=== PATIENT | male | born 1935 | race Caucasian/White ===

== ENCOUNTER → 2018-04-26 | Outpatient (CLI) | payer OTHER ==
[~2018-04-26] MED LIST: ADULT LOW DOSE81 MG PO; AFLURIA 2045 MCG/0.4; ALDACTONE25 MG PO; AMOXICILLIN250 M1 PO; BENADRYL25 MG PO; BETIMOL10 ML OP; CALCIUM 500+D1 EAC3 PO; CALCIUM OYSTER500 MG PO; CARVEDILOL12.5 MG PO; CARVEDILOL6.25 MG PO; CO Q-10100 MG PO; COQ-10100 MG PO; COUMADIN 1MG TAB1 M1; COUMADIN 1MG TAB1 M1 PO; COZAAR 25 MG TA25 M1 PO; DILAUDID 4 MG TA4 M1 PO; ELIQUIS5 MG PO; ENTRESTO 24 MG1 EACH PO; FENTANYL PA12 MCG/HR TP; FENTANYL PA25 MCG/HR TP; FISH OIL 1,0001 EAC7 PO; FISH OIL 1,001000 MG PO; FISH OIL SOFTG1 EACH OR; FOSAMAX 70 MG T70 M1 PO; GAMUNEX IV; HYDROCODON-ACE1 EAC7 PO; ISOSORBIDE DINI30 MG PO; KEFLEX250 MG PO; LASIX 20 MG TAB20 MG PO; LOPRESSOR 50 MG50 M1 PO; LOPRESSOR50 PO; LORTAB 7.5/5001 TA1; LUMIGAN2.5 M1 OPHTHALMIC; MELOXICAM7.5 MG PO; MIRALAX255 GM; MIRALAX255 GM PO; MULTIVITAMINS PO; OMEGA 3-6-9 CO1 EACH PO; OMEPRAZOLE PO; OXYCODONE-ACET1 EAC2 PO; OXYCONTIN10 M1 PO; PACERONE 200 M200 M1 PO; PNEUMOVAX25 MCG/0.5; POTASSIUM20 PO; PRAVACHOL40 MG PO; PRAVASTATIN SOD40 MG PO; PREDNISONE 20 M20 M1 PO; PREDNISONE 5 MG5 M1 PO; PREDNISONE PO; PRILOSEC 20 MG20 MG PO; PRILOSEC40 MG PO; PRIVIGEN IV; SENOKOT-S1 TA1 PO; SIMVASTATIN40 MG PO; SKELAXIN 800 M800 M1 PO; TIMOLOL MALEATE5 M2 OPHTHALMIC; TOPROL XL50 MG PO; TUMS PO; VALIUM5 MG PO; VITAMIN D 5050000 I1 PO; VITAMIN D1000 UNI1 PO; XALATAN2.5 ML OPHTHALMIC; ZOFRAN4 MG PO; ZOLOFT25 MG PO
[2018-04-26 11:03] LABS: HEMATOCRIT 42.5 % (42.0-52.0); HEMOGLOBIN 14.4 gm/dL (14.0-18.0); MCH 30.8 pg (26.0-34.0); MCV 90.9 fL (80.0-100.0); RBC 4.68 mil/uL (4.50-6.00); RDW 13.9 % (10.5-14.5); WBC 4.8 thou/uL (4.0-11.0)
[2018-04-26 11:14] LABS: ALBUMIN 3.2 g/dL (3.4-5.0); CREATININE 1.3 mg/dL (0.7-1.3); POTASSIUM 3.6 mmol/L (3.5-5.1); TOTAL BILIRUBIN 0.8 mg/dL (<0.1-1.0); TOTAL PROTEIN 6.8 g/dL (6.4-8.2)
[2018-04-26 11:24] VITALS: BP 105/63
[2018-04-26 11:44] LABS: ABSOLUTE NEUTROPHILS 2.8 thou/uL (1.4-8.2); PLATELET COUNT 139 thou/uL (150-400); PLATELET ESTIMATE NORMAL
== END ==
LOC: OPONC 01:30
PROVIDERS: Psychiatry & Neurology Neurology
DX: G61.81 Chronic inflammatory demyelinating polyneuritis (principal); R26.9 Unspecified abnormalities of gait and mobility; R53.1 Weakness; Z79.899 Other long term (current) drug therapy
CPT/HCPCS: 95000; 95001

== ENCOUNTER → 2018-04-27 | Outpatient (CLI) | payer OTHER ==
[2018-04-27 10:05] VITALS: BP 105/62
== END ==
LOC: OPONC
DX: G61.81 Chronic inflammatory demyelinating polyneuritis (principal); R26.9 Unspecified abnormalities of gait and mobility; R53.1 Weakness; Z79.899 Other long term (current) drug therapy
CPT/HCPCS: 95000; 95001

== ENCOUNTER → 2018-04-28 | Outpatient (CLI) | payer OTHER ==
[2018-04-28 11:35] VITALS: BP 128/73
== END ==
LOC: OPONC 00:50
DX: G61.81 Chronic inflammatory demyelinating polyneuritis (principal); R26.9 Unspecified abnormalities of gait and mobility; R53.1 Weakness; Z79.899 Other long term (current) drug therapy
CPT/HCPCS: 95000; 95001

== ENCOUNTER → 2018-04-29 | Outpatient (CLI) | payer OTHER ==
[2018-04-29 10:15] VITALS: BP 100/60
== END ==
LOC: OPONC 02:53
DX: G61.81 Chronic inflammatory demyelinating polyneuritis (principal); R26.9 Unspecified abnormalities of gait and mobility; R53.1 Weakness; Z79.899 Other long term (current) drug therapy
CPT/HCPCS: 95000; 95001

== ENCOUNTER → 2018-05-17 | Outpatient (CLI) | payer OTHER ==
[2018-05-17 15:27] LABS: HEMATOCRIT 34.2 % (42.0-52.0); HEMOGLOBIN 11.8 gm/dL (14.0-18.0); MCH 31.7 pg (26.0-34.0); MCHC 34.5 g/dL (28.0-37.0); MCV 91.8 fL (80.0-100.0); PLATELET COUNT 157 thou/uL (150-400); RBC 3.73 mil/uL (4.50-6.00); RDW 15.2 % (10.5-14.5); WBC 3.6 thou/uL (4.0-11.0)
[2018-05-17 15:38] LABS: ALBUMIN 2.9 g/dL (3.4-5.0); CALCIUM 8.8 mg/dL (8.5-10.1); CREATININE 1.3 mg/dL (0.7-1.3); POTASSIUM 3.9 mmol/L (3.5-5.1); TOTAL BILIRUBIN 0.7 mg/dL (<0.1-1.0)
[2018-05-17 15:47] LABS: ABSOLUTE NEUTROPHILS 1.8 thou/uL (1.4-8.2); ANISOCYTOSIS 1+
[2018-05-17 15:48] LABS: POLYCHROMASIA OCCASIONAL
== END ==
LOC: OPONC 00:36
PROVIDERS: Psychiatry & Neurology Neurology
DX: G61.81 Chronic inflammatory demyelinating polyneuritis (principal); R26.9 Unspecified abnormalities of gait and mobility; R53.1 Weakness; Z79.899 Other long term (current) drug therapy
CPT/HCPCS: 95000; 95001

== ENCOUNTER → 2018-06-07 | Outpatient (CLI) | payer OTHER ==
[2018-06-07 13:55] VITALS: BP 124/74
[2018-06-07 16:17] LABS: PLATELET COUNT 130 thou/uL (150-400)
[2018-06-07 16:19] LABS: HEMATOCRIT 33.3 % (42.0-52.0); HEMOGLOBIN 11.5 gm/dL (14.0-18.0); MCH 32.4 pg (26.0-34.0); MCHC 34.7 g/dL (28.0-37.0); MCV 93.6 fL (80.0-100.0); RBC 3.55 mil/uL (4.50-6.00); RDW 15.1 % (10.5-14.5)
[2018-06-07 16:20] LABS: WBC 1.7 thou/uL (4.0-11.0)
[2018-06-07 16:35] LABS: ALBUMIN 2.6 g/dL (3.4-5.0); CALCIUM 8.3 mg/dL (8.5-10.1); CREATININE 1.2 mg/dL (0.7-1.3); POTASSIUM 3.2 mmol/L (3.5-5.1); TOTAL BILIRUBIN 0.6 mg/dL (<0.1-1.0); TOTAL PROTEIN 8.1 g/dL (6.4-8.2)
[2018-06-07 16:47] LABS: ABSOLUTE NEUTROPHILS 1.1 thou/uL (1.4-8.2)
[2018-06-07 16:48] LABS: ANISOCYTOSIS 1+; HYPOCHROMASIA SLIGHT
== END ==
LOC: OPONC 07:59
DX: G61.81 Chronic inflammatory demyelinating polyneuritis (principal); R26.9 Unspecified abnormalities of gait and mobility; R53.1 Weakness; Z79.899 Other long term (current) drug therapy
CPT/HCPCS: 95000; 95001

== ENCOUNTER → 2018-07-26 | Outpatient (CLI) | payer OTHER ==
[2018-07-26 11:15] LABS: HEMATOCRIT 40.1 % (42.0-52.0); HEMOGLOBIN 13.8 gm/dL (14.0-18.0); MCH 31.6 pg (26.0-34.0); MCHC 34.3 g/dL (28.0-37.0); MCV 92.3 fL (80.0-100.0); PLATELET COUNT 145 thou/uL (150-400); RBC 4.35 mil/uL (4.50-6.00); RDW 13.3 % (10.5-14.5); WBC 3.6 thou/uL (4.0-11.0)
[2018-07-26 11:30] LABS: ALBUMIN 3.2 g/dL (3.4-5.0); CALCIUM 8.6 mg/dL (8.5-10.1); CREATININE 1.2 mg/dL (0.7-1.3); POTASSIUM 3.5 mmol/L (3.5-5.1); TOTAL BILIRUBIN 0.7 mg/dL (<0.1-1.0); TOTAL PROTEIN 6.7 g/dL (6.4-8.2)
[2018-07-26 12:09] LABS: ABSOLUTE NEUTROPHILS 2.1 thou/uL (1.4-8.2); ATYPICAL LYMPHS 6 %; PLATELET ESTIMATE NORMAL
[2018-07-26 14:54] VITALS: BP 96/64
--- NOTE | 2018-07-26 14:58 | NUR ---
IN FOR Q4WEEK GAMUNEX INFUSION. STATED FEELING WELL. TITRATED GAMUNEX PER PROTOCOL WITH MAX RATE OF 140ML/HR AND TOLERATED WELL WITHOUT INCIDENT. SCHEDULED TO RETURN FOR NEXT INFUSION. DISMISSED IN STABLE CONDITION.
== END ==
LOC: OPONC 00:15
DX: G61.81 Chronic inflammatory demyelinating polyneuritis (principal); D72.9 Disorder of white blood cells, unspecified; Z79.899 Other long term (current) drug therapy
CPT/HCPCS: 95000; 95001

== ENCOUNTER → 2018-08-23 | Outpatient (CLI) | payer OTHER ==
[~2018-08-23] MED LIST changes: +ACETAMINOPHEN-1 EAC1 PO; +COUGH DM PO; +KLOR-CON 1010 MEQ PO; +SENNA8.6 MG PO; +TIMOPTIC 0.5%1 EACH OPHTHALMIC; +TOPROL XL25 MG PO
[2018-08-23 10:20] VITALS: BP 103/62
[2018-08-23 12:37] LABS: HEMATOCRIT 39.4 % (42.0-52.0); HEMOGLOBIN 13.3 gm/dL (14.0-18.0); MCH 31.1 pg (26.0-34.0); MCHC 33.8 g/dL (28.0-37.0); MCV 92.1 fL (80.0-100.0); RBC 4.28 mil/uL (4.50-6.00); RDW 13.6 % (10.5-14.5); WBC 4.3 thou/uL (4.0-11.0)
[2018-08-23 12:56] LABS: ALBUMIN 3.1 g/dL (3.4-5.0); CALCIUM 9.2 mg/dL (8.5-10.1); CREATININE 1.1 mg/dL (0.7-1.3); POTASSIUM 4.7 mmol/L (3.5-5.1); TOTAL BILIRUBIN 0.7 mg/dL (<0.1-1.0); TOTAL PROTEIN 6.8 g/dL (6.4-8.2)
[2018-08-23 13:13] LABS: ABSOLUTE NEUTROPHILS 2.7 thou/uL (1.4-8.2); LARGE PLATELETS RARE; PLATELET COUNT 140 thou/uL (150-400)
== END ==
LOC: OPONC 00:38
DX: G61.81 Chronic inflammatory demyelinating polyneuritis (principal); D72.9 Disorder of white blood cells, unspecified; Z79.899 Other long term (current) drug therapy
CPT/HCPCS: 95000; 95001

== ENCOUNTER 2018-08-26 08:05 | Emergency (ER) | payer OTHER ==
[~2018-08-26] VITALS: Ht 182.9 cm; Wt 78.0 kg
[~2018-08-26 08:05] MED LIST changes: -ACETAMINOPHEN-1 EAC1 PO; -COUGH DM PO; -KLOR-CON 1010 MEQ PO; -SENNA8.6 MG PO; -TIMOPTIC 0.5%1 EACH OPHTHALMIC; -TOPROL XL25 MG PO
--- NOTE | 2018-08-26 08:42 | EKG ---
[place] [address] [facility] [place] [address] ELECTROCARDIOGRAM REPORT Name: RODGER GRAY Room #: [facility]#: [id number] ������������������ Admission: ������������������ Attend Phys: Discharge: ������������������ Date of : 35 Report #: [id number] ����������������������������������������������������������������� [id number] THIS REPORT FOR: //name// [facility] ED Test Date: 2018-08-26 Test Time: 08:32:02 Pat Name: RODGER GRAY Department: Room: Gender: M [employer]: : 1935 Requested By: Charlene Harper Order Number: [id number] MD: Aftab Banuelos Measurements Intervals Amigo Rate: 63 P: 0 MO: 31 QRS: 204 QRSD: 119 T: 75 QT: 426 QTc: 437 Interpretive Statements Ventricular-paced rhythm No further analysis attempted due to paced rhythm Compared to ECG 06/14/2015 08:16:26 no significant change was found Electronically Signed On 08-26-2018 8:42:43 [employer] by Aftab Banuelos [email or web address] ��������������������������������������������� <ELECTRONICALLY SIGNED> ���������������������������������������� By: Aftab Banuelos MD, [facility] ��������������������������������������������� 08/26/18 0842 1 Aftab Banuelos MD, FACC /EPI
[2018-08-26 08:43] LABS: HEMATOCRIT 42.6 % (42.0-52.0); HEMOGLOBIN 14.6 gm/dL (14.0-18.0); MCH 31.1 pg (26.0-34.0); MCHC 34.3 g/dL (28.0-37.0); MCV 90.9 fL (80.0-100.0); PLATELET COUNT 135 thou/uL (150-400); RBC 4.69 mil/uL (4.50-6.00); RDW 13.3 % (10.5-14.5); WBC 4.7 thou/uL (4.0-11.0)
[2018-08-26 08:51] LABS: CALCIUM 9.4 mg/dL (8.5-10.1); CREATININE 1.2 mg/dL (0.7-1.3); POTASSIUM 3.8 mmol/L (3.5-5.1)
[2018-08-26] MEDS ORDERED: KLOR-CON 1010 MEQ PO (08:53)
[2018-08-26] MEDS ORDERED: TOPROL XL25 MG PO (08:53)
[2018-08-26 09:02] LABS: ABSOLUTE NEUTROPHILS 2.9 thou/uL (1.4-8.2); ATYPICAL LYMPHS 2 %; LARGE PLATELETS OCCASIONAL
[2018-08-26 09:03] LABS: ANISOCYTOSIS SLIGHT
[2018-08-26] MEDS ORDERED: TIMOPTIC 0.5%1 EACH OPHTHALMIC (09:05)
[2018-08-26] MEDS ORDERED: SENNA8.6 MG PO (10:17)
[2018-08-26] MEDS ORDERED: COUGH DM PO (10:17)
[2018-08-26] MEDS ORDERED: ACETAMINOPHEN-1 EAC1 PO (10:17)
[2018-08-26 10:28] VITALS: BP 109/59
== END 2018-08-26 10:29 | disposition home or self-care (01) ==
LOC: ER 08:05
PROVIDERS: Student in an Organized Health Care Education/Training Program
DX: J10.1 Influenza due to other identified influenza virus with other respiratory manifestations (principal); K21.9 Gastro-esophageal reflux disease without esophagitis; I10 Essential (primary) hypertension; E78.00 Pure hypercholesterolemia, unspecified; Z95.0 Presence of cardiac pacemaker; Z90.49 Acquired absence of other specified parts of digestive tract; Z88.8 Allergy status to other drugs, medicaments and biological substances

== ENCOUNTER → 2018-09-22 | Outpatient (CLI) | payer OTHER ==
[~2018-09-22] MED LIST changes: +ACETAMINOPHEN-1 EAC1 PO; +COUGH DM PO; +KLOR-CON 1010 MEQ PO; +SENNA8.6 MG PO; +TIMOPTIC 0.5%1 EACH OPHTHALMIC; +TOPROL XL25 MG PO
[2018-09-22 10:44] VITALS: BP 109/67
[2018-09-22 11:39] LABS: HEMATOCRIT 36.1 % (42.0-52.0); HEMOGLOBIN 12.4 gm/dL (14.0-18.0); MCH 30.6 pg (26.0-34.0); MCHC 34.2 g/dL (28.0-37.0); MCV 89.5 fL (80.0-100.0); RBC 4.03 mil/uL (4.50-6.00); RDW 14.2 % (10.5-14.5); WBC 3.5 thou/uL (4.0-11.0)
[2018-09-22 11:54] LABS: ALBUMIN 2.9 g/dL (3.4-5.0); CALCIUM 8.1 mg/dL (8.5-10.1); CREATININE 1.1 mg/dL (0.7-1.3); POTASSIUM 3.2 mmol/L (3.5-5.1); TOTAL BILIRUBIN 0.8 mg/dL (<0.1-1.0)
[2018-09-22 12:21] LABS: ABSOLUTE NEUTROPHILS 2.2 thou/uL (1.4-8.2); ANISOCYTOSIS SLIGHT; PLATELET COUNT 129 thou/uL (150-400)
--- NOTE | 2018-09-22 14:15 | NUR ---
IN FOR MONTHLY GAMUNEX C INFUSION. REPORTS DOING WELL NEUROLOGICALLY BUT IS HAVING RESIDUAL WEAKNESS AND FATIGUE AND LINGERING DRY COUGH S/P INFLUENZA THIS PAST MONTH. DENIES DYSPNEA AND REPORTS GAINING STRENGTH AND WT BACK THAT WAS LOST WITH ILLNESS. PT TOOK HIS OWN TYLENOL AND BENADRYL PRIOR TO ARRIVAL. GAMUNEX C TITRATED TO MAX RATE OF 140/H AND COMPLETED IN JUST UNDER 3 HOURS. NO S/S REACTION. LABS DRAWN PRIOR REVEAL K OF 3.2. PT STATES HE IS STILL ON HIS NORMAL DOSE OF POTASSIUM BUT HAD BEEN ILL RECENTLY WHICH MAY HAVE AFFECTED HIS LEVEL. FAXED THESE LABS TO BOTH DR. PERDOMO AND DR. RHODES. WILL CALL DR. ARMENDARIZ WHEN THEY GET HOME TO SEE IF DOSE ADJUSTMENT IS INDICATED. PT DISMISSED IN STABLE CONDITION. SCHEDULED TO RETURN IN 4 WEEKS.
== END ==
LOC: OPONC 09-20 07:13
PROVIDERS: Psychiatry & Neurology Neurology
DX: G61.81 Chronic inflammatory demyelinating polyneuritis (principal)
CPT/HCPCS: 95000; 95001

== ENCOUNTER → 2018-10-18 | Outpatient (CLI) | payer OTHER ==
[2018-10-18 11:08] LABS: HEMATOCRIT 38.6 % (42.0-52.0); HEMOGLOBIN 13.1 gm/dL (14.0-18.0); MCH 30.9 pg (26.0-34.0); MCHC 33.9 g/dL (28.0-37.0); MCV 91.1 fL (80.0-100.0); RBC 4.24 mil/uL (4.50-6.00); RDW 15.1 % (10.5-14.5); WBC 4.1 thou/uL (4.0-11.0)
[2018-10-18 11:19] LABS: ALBUMIN 3.4 g/dL (3.4-5.0); CALCIUM 9.1 mg/dL (8.5-10.1); CREATININE 1.2 mg/dL (0.7-1.3); POTASSIUM 3.6 mmol/L (3.5-5.1); TOTAL BILIRUBIN 1.1 mg/dL (<0.1-1.0); TOTAL PROTEIN 6.9 g/dL (6.4-8.2)
[2018-10-18 11:41] LABS: ABSOLUTE NEUTROPHILS 2.6 thou/uL (1.4-8.2); ATYPICAL LYMPHS 6 %
[2018-10-18 11:42] LABS: LARGE PLATELETS FEW; PLATELET COUNT 156 thou/uL (150-400); PLATELET ESTIMATE NORMAL
[2018-10-18 11:43] LABS: ANISOCYTOSIS SLIGHT; POIKILOCYTOSIS SLIGHT
[2018-10-18 13:53] VITALS: BP 106/60
--- NOTE | 2018-10-18 15:13 | NUR ---
IN FOR MONTHLY GAMUNEX C INFUSION. PATIENT STATED NUMBESS IS GONE FROM HIS FACE, HOWEVER STILL HAS MILD NUMBNESS FROM KNEES DOWN TO FEET. IV STARTED. PATIENT TOOK OWN PREMEDS BEFORE COMING IN. TITRATED GAMUNEX C PER PROTOCOL WWITH MAX RATE OF 120ML/HR AND TOLERATED WELL WITHOUT INCIDENT. PATIENT TO SEE DR. RHODES TOMORROW. PLATELET COUNT WNL. FAXED LAB RESULTS TO DR. RHODES. REMOVED IV AND DISMISSED IN STABLE CONDITION.
== END ==
LOC: OPONC 00:30
PROVIDERS: Psychiatry & Neurology Neurology
DX: G61.81 Chronic inflammatory demyelinating polyneuritis (principal); D72.9 Disorder of white blood cells, unspecified; Z79.899 Other long term (current) drug therapy
CPT/HCPCS: 95000; 95001

== ENCOUNTER → 2018-11-19 | Outpatient (CLI) | payer OTHER ==
[2018-11-19 12:56] LABS: ABSOLUTE NEUTROPHILS 2.3 thou/uL (1.4-8.2); BASOPHILS 0.8 % (0.0-2.0); EOSINOPHILS 1.7 % (0.0-3.0); HEMATOCRIT 38.8 % (42.0-52.0); HEMOGLOBIN 13.3 gm/dL (14.0-18.0); LYMPHOCYTES 30.6 % (24.0-44.0); MCH 31.3 pg (26.0-34.0); MCHC 34.3 g/dL (28.0-37.0); MCV 91.2 fL (80.0-100.0); MONOCYTES 11.7 % (1.0-8.0); PLATELET COUNT 160 thou/uL (150-400); POLYS 55.2 % (36.0-66.0); RBC 4.25 mil/uL (4.50-6.00); RDW 14.2 % (10.5-14.5); WBC 4.2 thou/uL (4.0-11.0)
[2018-11-19 13:15] LABS: ALBUMIN 3.3 g/dL (3.4-5.0); CALCIUM 8.7 mg/dL (8.5-10.1); CREATININE 1.2 mg/dL (0.7-1.3); POTASSIUM 3.6 mmol/L (3.5-5.1); TOTAL BILIRUBIN 0.9 mg/dL (<0.1-1.0)
[2018-11-19 16:25] VITALS: BP 107/71
--- NOTE | 2018-11-19 16:29 | NUR ---
IN FOR MONTHLY GAMUNEX C INFUSION. STATED INFUSIONS HELPING POLYNEUROPATHY FOR ABOUT 2 WEEKS AFTER INFUSION AND THEN THE NEUROPATHY STARTS UP AGAIN. COMPLAINING OF LEFT KNEE WEAKNESS, ARM AND FACIAL NUMBNESS TODAY. TITRATED INFUSION PER PROTOCOL WITH MAX RATE OF 125ML/HR AND TOLERATED WELL WITH NO ADVERSE REACTION NOTED. SCHEDULED NEXT APPT IN NOVEMBER. AT BEDSIDE. DISMISSED IN STABLE CONDITION.
== END ==
LOC: OPONC 11-15 13:03
PROVIDERS: Psychiatry & Neurology Neurology
DX: G61.81 Chronic inflammatory demyelinating polyneuritis (principal); D72.9 Disorder of white blood cells, unspecified; Z79.899 Other long term (current) drug therapy
CPT/HCPCS: 95000; 95001

== ENCOUNTER → 2018-12-20 | Outpatient (CLI) | payer OTHER ==
[2018-12-20 10:55] VITALS: BP 106/65
[2018-12-20 12:01] LABS: HEMATOCRIT 41.7 % (42.0-52.0); HEMOGLOBIN 14.1 gm/dL (14.0-18.0); MCH 30.7 pg (26.0-34.0); MCHC 33.7 g/dL (28.0-37.0); MCV 91.2 fL (80.0-100.0); RBC 4.57 mil/uL (4.50-6.00); RDW 13.7 % (10.5-14.5); WBC 4.4 thou/uL (4.0-11.0)
[2018-12-20 12:14] LABS: ALBUMIN 3.3 g/dL (3.4-5.0); CALCIUM 8.8 mg/dL (8.5-10.1); CREATININE 1.3 mg/dL (0.7-1.3); POTASSIUM 3.5 mmol/L (3.5-5.1); TOTAL BILIRUBIN 0.6 mg/dL (<0.1-1.0)
[2018-12-20 12:23] LABS: ABSOLUTE NEUTROPHILS 2.8 thou/uL (1.4-8.2); METAMYELOCYTES 1 %; PLATELET COUNT 148 thou/uL (150-400); PLATELET ESTIMATE NORMAL
[2018-12-20 12:24] LABS: LARGE PLATELETS FEW
--- NOTE | 2018-12-20 15:14 | NUR ---
IN FOR GAMUNEX C INFUSION FOR CIDP. PATIENT HAVING INCREASED WEAKNESS IN LEGS AND STATED HE ALMOST FELL THIS MORNING. PATIENT DID HAVE A FALL AT HOME 3 DAYS AGO, HOWEVER HE SAID IT WAS A SOFT FALL ON CARPET AND HE WAS NOT INJURED. PATIENT HAVING INCREASED SYMPTOMS OF NUMBNESS TO FACE, TO BOTH ARMS BELOW THE ELBOW, AND BOTH LEGS BELOW THE KNEES. TITRATED GAMUNEX C PER PROTOCOL WITH MAX RATE OF 125ML/HR AND TOLERATED WELL. PATIENT TOOK TYLENOL AT HOME PRIOR TO COMING IN TO CLINIC. PATIENT HOPING TO GET ANOTHER INFUSION THIS WEEK WHEN GAMUNEX C AVAILABLE FOR A TOTAL DOSE OF 80 GMS. WENT AHEAD AND MADE HIS NEXT APPT IN 3 WEEKS. DISMISSED IN STABLE CONDITION.
== END ==
LOC: OPONC 09:25
PROVIDERS: Psychiatry & Neurology Neurology
DX: G61.81 Chronic inflammatory demyelinating polyneuritis (principal)
CPT/HCPCS: 95000; 95001

== ENCOUNTER → 2018-12-24 | Outpatient (CLI) | payer OTHER ==
[2018-12-24 11:44] VITALS: BP 105/62
--- NOTE | 2018-12-24 15:40 | NUR ---
PATIENT IN FOR THE REST OF GAMUNEX C INFUSION. GAVE 45 GM TODAY, COMBINED WITH 30 GM ON THURSDAY FOR A TOTAL OF 75GM THIS WEEK. TITRATED GAMUNEX PER PROTOCOL WITH MAX RATE OF 150ML/HR AND TOLERATED WELL WITHOUT INCIDENT. PATIENT STILL HAVING TROUBLE WITH WEAK LEGS, HANDS. PATIENT TOOK OWN TYLENOL PREMED. SCHEDULED TO RETURN ON 01/10/19 FOR NEXT INFUSION. DISMISSED IN STABLE CONDITION.
== END ==
LOC: OPONC 10:26
DX: G61.81 Chronic inflammatory demyelinating polyneuritis (principal)
CPT/HCPCS: 95000; 95001

== ENCOUNTER → 2019-01-10 | Outpatient (CLI) | payer OTHER ==
[2019-01-10 10:15] VITALS: BP 99/51
[2019-01-10 16:21] LABS: HEMATOCRIT 37.1 % (42.0-52.0); HEMOGLOBIN 12.6 gm/dL (14.0-18.0); MCH 31.2 pg (26.0-34.0); MCHC 34.1 g/dL (28.0-37.0); MCV 91.5 fL (80.0-100.0); PLATELET COUNT 147 thou/uL (150-400); RBC 4.05 mil/uL (4.50-6.00); RDW 14.2 % (10.5-14.5); WBC 3.5 thou/uL (4.0-11.0)
[2019-01-10 16:31] LABS: CALCIUM 8.8 mg/dL (8.5-10.1); CREATININE 1.2 mg/dL (0.7-1.3); POTASSIUM 3.8 mmol/L (3.5-5.1); TOTAL BILIRUBIN 0.7 mg/dL (<0.1-1.0); TOTAL PROTEIN 7.1 g/dL (6.4-8.2)
[2019-01-10 16:44] LABS: ABSOLUTE NEUTROPHILS 1.4 thou/uL (1.4-8.2); ANISOCYTOSIS 1+
--- NOTE | 2019-01-10 17:51 | NUR ---
IN FOR GAMUNEX C INFUSION FOR CIDP. PATIENT STATED ABLE TO WALK NOW, HOWEVER STILL HAVING NUMBNESS TO FACE, FEET, HANDS. TITRATED GAMUNEX C PER PROTOCOL WITH MAX RATE OF 125ML/HR AND TOLERATED WELL. LABS FAXED TO DR. RHODES. TO RETURN IN 3 WEEKS FOR NEXT INFUSION. DISMISSED IN STABLE CONDITION.
== END ==
LOC: OPONC 00:22
PROVIDERS: Psychiatry & Neurology Neurology
DX: G61.81 Chronic inflammatory demyelinating polyneuritis (principal)
CPT/HCPCS: 95000; 95001

== ENCOUNTER → 2019-02-01 | Outpatient (CLI) | payer OTHER ==
[2019-02-01 09:15] VITALS: BP 111/61
[2019-02-01 10:32] LABS: HEMATOCRIT 37.2 % (42.0-52.0); HEMOGLOBIN 12.7 gm/dL (14.0-18.0); MCH 31.4 pg (26.0-34.0); MCHC 34.2 g/dL (28.0-37.0); MCV 91.7 fL (80.0-100.0); PLATELET COUNT 178 thou/uL (150-400); RBC 4.05 mil/uL (4.50-6.00); RDW 14.4 % (10.5-14.5)
[2019-02-01 11:01] LABS: ALBUMIN 3.2 g/dL (3.4-5.0); CALCIUM 9.1 mg/dL (8.5-10.1); CREATININE 1.2 mg/dL (0.7-1.3); POTASSIUM 3.4 mmol/L (3.5-5.1); TOTAL BILIRUBIN 0.6 mg/dL (<0.1-1.0); TOTAL PROTEIN 7.7 g/dL (6.4-8.2)
[2019-02-01 11:39] LABS: ATYPICAL LYMPHS 2 %; NUCLEATED RBCS 1 /100WBC
[2019-02-01 11:41] LABS: MICROCYTES SLIGHT
--- NOTE | 2019-02-01 14:52 | NUR ---
IN FOR Q3WEEK GAMUNEX C INFUSION FOR CIDP. PATIENT STATED THE WEAKNESS AND NUMBNESS IS MUCH BETTER SINCE LAST INFUSION. STILL WITH MILD NUMBNESS TO ARMS AND FACE. AMBULATED WITH USE OF CANE. TITRATED GAMUNEX C PER PROTOCOL WITH MAX RATE 175ML/HR AND TOLERATED WELL. SCHEDULED TO RETURN IN 3 WEEKS FOR NEXT INFUSION. DISMISSED AMBULATORY IN STABLE CONDITION. PATIENT STATED THE COPAY IS TO EXPENSIVE AT THIS TIME FOR HOME INFUSIONS.
== END ==
LOC: OPONC 01:43
PROVIDERS: Psychiatry & Neurology Neurology
DX: G61.81 Chronic inflammatory demyelinating polyneuritis (principal)
CPT/HCPCS: 95000; 95001

== ENCOUNTER → 2019-02-24 | Outpatient (CLI) | payer OTHER ==
[2019-02-24 09:15] VITALS: BP 105/59
[2019-02-24 09:51] LABS: HEMATOCRIT 37.3 % (42.0-52.0); HEMOGLOBIN 12.9 gm/dL (14.0-18.0); MCHC 34.5 g/dL (28.0-37.0); MCV 92.5 fL (80.0-100.0); RBC 4.03 mil/uL (4.50-6.00); WBC 3.3 thou/uL (4.0-11.0)
[2019-02-24 10:04] LABS: ALBUMIN 3.2 g/dL (3.4-5.0); CALCIUM 8.9 mg/dL (8.5-10.1); CREATININE 1.1 mg/dL (0.7-1.3); POTASSIUM 3.7 mmol/L (3.5-5.1); TOTAL BILIRUBIN 0.8 mg/dL (<0.1-1.0); TOTAL PROTEIN 7.3 g/dL (6.4-8.2)
[2019-02-24 10:41] LABS: PLATELET COUNT 145 thou/uL (150-400); PLATELET ESTIMATE NORMAL
--- NOTE | 2019-02-24 16:05 | NUR ---
IN FOR Q3WEEK GAMUNEX C INFUSION FOR CIDP. PATIENT STATED NUMBNESS IS GONE IN FACE AND HANDS, BUT PERSISTS IN LOWER LEGS BELOW THE KNEE. PATIENT TOOK OWN PREMEDS. TITRATED GAMUNEX PER PROTOCOL WITH MAX RATE OF 150ML/HR AND TOLERATED WELL WITH NO ADVERSE REACTION NOTED. TO RETURN IN 3 WEEKS FOR NEXT INFUSION. DISMISSED IN STABLE CONDITION.
== END ==
LOC: OPONC 07:17
PROVIDERS: Psychiatry & Neurology Neurology
DX: G61.81 Chronic inflammatory demyelinating polyneuritis (principal)
CPT/HCPCS: 95000; 95001

== ENCOUNTER → 2019-11-14 | Outpatient (CLI) | payer OTHER | LOC: SJCVC 11:19 | PROVIDERS: ATTEND Internal Medicine Cardiovascular Disease | DX: Z45.02 Encounter for adjustment and management of automatic implantable cardiac defibrillator (principal); I42.9 Cardiomyopathy, unspecified; I48.21 Permanent atrial fibrillation; E78.00 Pure hypercholesterolemia, unspecified; I10 Essential (primary) hypertension; G61.81 Chronic inflammatory demyelinating polyneuritis; Z90.49 Acquired absence of other specified parts of digestive tract; Z79.899 Other long term (current) drug therapy ==

== ENCOUNTER → 2020-07-16 | Outpatient (CLI) | payer OTHER | LOC: SJCVCIMAG 06-20 08:44 | PROVIDERS: ATTEND Internal Medicine Cardiovascular Disease | DX: I08.8 Other rheumatic multiple valve diseases (principal); I25.10 Atherosclerotic heart disease of native coronary artery without angina pectoris; I48.21 Permanent atrial fibrillation; I42.9 Cardiomyopathy, unspecified; I11.9 Hypertensive heart disease without heart failure; E78.00 Pure hypercholesterolemia, unspecified; D68.59 Other primary thrombophilia; Z95.810 Presence of automatic (implantable) cardiac defibrillator; Z90.49 Acquired absence of other specified parts of digestive tract; Z98.890 Other specified postprocedural states; Z88.8 Allergy status to other drugs, medicaments and biological substances; Z79.899 Other long term (current) drug therapy; Z86.73 Personal history of transient ischemic attack (TIA), and cerebral infarction without residual deficits ==

== ENCOUNTER → 2021-01-09 | Outpatient (CLI) | payer OTHER | LOC: SJCVC 10:00 | PROVIDERS: ATTEND Internal Medicine Cardiovascular Disease | DX: I25.10 Atherosclerotic heart disease of native coronary artery without angina pectoris (principal); I25.5 Ischemic cardiomyopathy; I48.21 Permanent atrial fibrillation; E78.00 Pure hypercholesterolemia, unspecified; I11.0 Hypertensive heart disease with heart failure; I50.32 Chronic diastolic (congestive) heart failure; E78.5 Hyperlipidemia, unspecified; F10.10 Alcohol abuse, uncomplicated; Z88.8 Allergy status to other drugs, medicaments and biological substances; Z95.810 Presence of automatic (implantable) cardiac defibrillator; Z90.49 Acquired absence of other specified parts of digestive tract; Z95.5 Presence of coronary angioplasty implant and graft; Z79.899 Other long term (current) drug therapy ==

== ENCOUNTER → 2021-07-15 | Outpatient (CLI) | payer BC | LOC: SJCVC 14:30 | PROVIDERS: ATTEND Internal Medicine Cardiovascular Disease | DX: R94.31 Abnormal electrocardiogram [ECG] [EKG] (principal); I25.10 Atherosclerotic heart disease of native coronary artery without angina pectoris; E78.00 Pure hypercholesterolemia, unspecified; I25.5 Ischemic cardiomyopathy; I48.91 Unspecified atrial fibrillation; I42.9 Cardiomyopathy, unspecified; I11.0 Hypertensive heart disease with heart failure; I50.23 Acute on chronic systolic (congestive) heart failure; E78.5 Hyperlipidemia, unspecified; D68.59 Other primary thrombophilia; Z95.810 Presence of automatic (implantable) cardiac defibrillator; Z72.89 Other problems related to lifestyle; Z79.899 Other long term (current) drug therapy; Z88.8 Allergy status to other drugs, medicaments and biological substances ==